=== PATIENT | female | born 1955 | race Caucasian/White ===

== ENCOUNTER 2016-09-29 13:32 | Outpatient (CLI) | payer BC ==
[~2016-09-29] VITALS: Ht 170.2 cm; Wt 91.2 kg
[~2016-09-29 13:32] MED LIST: AMLO5TAB2 PO; BPR100T PO; BPR150TCR PO; CEPH-38 PO; CEPH500C PO; CHOL500044 PO; FLUO60TA PO; HORMONE PILL PO; HYDR-3454 PO; HYDR1TAB PO; LAXATIVE PO; LEVO75TA6 PO; LOSA100T28 PO; LVT.025T PO; OMEP40CA36 PO; POLY17PO23 PO; PROG200C6 PO; SPIR50TA2 PO; [UNRECOGNIZED DRUG - OTHER]; [UNRECOGNIZED DRUG - OTHER] TOP
[2016-09-29] MEDS ORDERED: LIDOCAINE 1% INJ 20 ML (XYLOCAINE) VIAL ONE (13:46)
[2016-09-29] MEDS ORDERED: TRIAMCINOLONE ACET (KENALOG-40) 40 MG/ML 1 ML VIAL ONE (13:46)
[2016-09-29] MEDS ORDERED: BUPIVACAINE 0.25% 30 ML (SENSORCAINE) VIAL ONE (13:46)
[2016-09-29 13:56] VITALS: BP 121/73
[2016-09-29 14:41] VITALS: BP 138/75
--- NOTE | 2016-09-29 14:57 | Pain Medicine-Procedure ---
Procedure Pre-Op/Post-Op Diagnosis Diagnosis: sacrococcygeal disorder Indications for Operation Hip pain Attending Surgeon Nicolasa Procedure Date of Service: Sep 29, 2016 Procedure: Flouroscopic guided right sacroiliac joint injection PROCEDURE IN DETAIL: After obtaining informed consent from the patient, the patient's chart was reviewed. The patient was then brought to the procedure room and placed in the prone position. A time out was performed. The back was prepped with antiseptic solution and under fluoroscopic guidance the patient's sacroiliac joint on the right side was identified. Right sacroiliac joint was identified with fluoroscopic guidance and 2 mL's of 1% lidocaine was used to anesthestize the skin and then one 22-gauge 3.5 inch spinal needle was inserted and advance under flouroscopic guidance until it was in the posterior inferior 1 /3 of the sacroiliac joint on the right side. After negative aspiration, needle was injected with 80 mg of Kenalog along with 2 mL's of 0.25% marcaine. Needle was then flushed with 1% lidocaine and then removed. Band-Aids were applied to all the sites and the patient tolerated the procedure well and was taken to the recovery area in stable condition. Complications None RASHAAD GUILLORY MD Sep 29, 2016 2:57 pm
== END 2016-09-29 14:43 | disposition home or self-care (01) ==
LOC: CARD 13:32
PROVIDERS: ATTEND Pain Medicine Pain Medicine
DX: M53.3 Sacrococcygeal disorders, not elsewhere classified (principal); Z79.899 Other long term (current) drug therapy; M70.61 Trochanteric bursitis, right hip
CPT/HCPCS: 27096

== ENCOUNTER 2017-03-07 15:53 | Outpatient (RCR) | payer BC | END 2017-03-10 | disposition home or self-care (01) | PROVIDERS: ATTEND Nurse Practitioner | DX: M54.16 Radiculopathy, lumbar region (principal) ==

== ENCOUNTER 2017-03-19 08:48 | Outpatient (RCR) | payer BC | END 2017-03-19 09:55 | disposition home or self-care (01) | PROVIDERS: ATTEND Nurse Practitioner | DX: M54.16 Radiculopathy, lumbar region (principal) ==

== ENCOUNTER → 2017-04-24 | Outpatient (CLI) | payer BC ==
--- NOTE | 2017-04-25 19:50 | Diagnostic Imaging Report ---
Bilateral screening mammogram 2D views with tomosynthesis The current study was also evaluated with a Computer Aided Detection (CAD) system. INDICATION: Screening. No current complaints stated on the questionnaire. COMPARISON: 03/23/2016. FINDINGS: The breasts are composed of scattered fibroglandular densities. Intramammary lymph node is suggested in the outer aspect of the left breast, stable from prior exam. Allowing for technique and positional differences, no suspicious change is seen. IMPRESSION: No significant change. ACR BI-RADS Category 2: Benign findings. Result letter will be mailed to the patient. Note: At least 10% of breast cancer is not imaged by mammography. Dictated by: Dictated on workstation # [id number]
== END ==
LOC: RAD 08:53
PROVIDERS: ATTEND Family Medicine
DX: Z12.31 Encounter for screening mammogram for malignant neoplasm of breast (principal)
CPT/HCPCS: 77067

== ENCOUNTER → 2017-05-30 | Outpatient (CLI) | payer BC ==
[~2017-05-30] MED LIST changes: +DEXL60CA PO; +[UNRECOGNIZED DRUG - OTHER]
== END ==
LOC: PREOP 10:15
PROVIDERS: ATTEND Surgery
DX: Z01.818 Encounter for other preprocedural examination (principal); Z12.11 Encounter for screening for malignant neoplasm of colon; K21.9 Gastro-esophageal reflux disease without esophagitis; R10.13 Epigastric pain

== ENCOUNTER 2017-05-31 07:28 | Day surgery (SDC) | payer BC ==
[~2017-05-31] VITALS: Ht 170.2 cm; Wt 91.2 kg
[~2017-05-31 07:28] MED LIST changes: -DEXL60CA PO; -[UNRECOGNIZED DRUG - OTHER]
[2017-05-31] MEDS ORDERED: NS IV 500 ML 500 ML IV PRN (07:34)
[2017-05-31] MEDS ORDERED: HURRICAINE EXT TUBE (BENZOCAINE) XX PRN (07:45)
[2017-05-31 07:51] VITALS: BP 132/88
[2017-05-31] MEDS ORDERED: DEXL60CA PO (08:03)
[2017-05-31] MEDS ORDERED: [UNRECOGNIZED DRUG - OTHER] (08:05)
[2017-05-31] MEDS ORDERED: fentaNYL INJECTION 100 MCG/2 ML AMP ONE (08:58)
[2017-05-31] MEDS ORDERED: MIDAZOLAM 2 MG/2 ML (VERSED) VIAL ONE ×7 (08:59→09:21)
[2017-05-31] MEDS: MIDAZOLAM 2 MG/2 ML (VERSED) VIAL IVP PRN ×5 (09:05→09:28)
[2017-05-31] MEDS ORDERED: HURRICAINE EXT TUBE (BENZOCAINE) ONE (09:08)
[2017-05-31] MEDS: fentaNYL INJECTION 100 MCG/2 ML AMP IVP PRN ×2 (09:11→09:19)
--- NOTE | 2017-05-31 09:12 | History & Physicial ---
History of Present Illness History of Present Illness Reason for visit/HPI undergo an upper endoscopy to investigate epigastric pain along with concomitant screening colonoscopy. Denies any family history of colon cancer. Date of Admission 05/31/17 Date Seen by Provider: May 31, 2017 Time Seen by Provider: 09:09 I consulted on this patient on 05/31/17 09:08 Attending Physician Isela Velasquez MD Admitting Physician reji fletcher D.O Consult Allergies and Home Medications Allergies Coded Allergies: Sulfa (Sulfonamides) (Unverified Allergy, RASH, 05/03/10) Home Medications Bupropion Hcl 150 Mg Tablet, 150 MG PO DAILY, (Reported) Cholecalciferol (Vitamin D3) 5,000 Unit Tablet, 5,000 UNIT PO DAILY, (Reported) Dexlansoprazole 60 Mg Cap.bp, 60 MG PO DAILY, (Reported) Levothyroxine Sodium 75 Mcg Tablet, 75 MCG PO DAILY, (Reported) Losartan Potassium 100 Mg Tablet, 100 MG PO DAILY, (Reported) Progesterone,Micronized 200 Mg Capsule, 200 MG PO BID, (Reported) Spironolactone 50 Mg Tablet, 50 MG PO DAILY, (Reported) [Comp. Hormone Cream] , TOP DAILY, (Reported) [Otc B12] , DAILY, (Reported) Past [id number]-Uzxcnr Hx Patient Social History Marrital Status: Employed/Student: employed Alcohol Use: Denies Use Recreational Drug Use: No Smoking Status: Never a Smoker Recent Foreign Travel: No Contact w/other who traveled: No Recent Hopitalizations: No Recent Infectious Disease Expo: No Immunizations Up To Date Tetanus Booster (TDap): Unknown Date of Influenza Vaccine: Mar 11, 2015 Seasonal Allergies Seasonal Allergies: No Surgeries Yes Gallbladder Respiratory No Currently Using CPAP: No Currently Using BIPAP: No Cardiovascular Yes Hypertension Neurological No Reproductive System Hx Reproductive Disorders: No Sexually Transmitted Disease: No HIV/AIDS: No Female Reproductive Disorders: Denies Genitourinary No Gastrointestinal Ulcer Musculoskeletal No Endocrine History of Endocrine Disorders: No HEENT History of HEENT Disorders: No Loss of Vision: Denies Hearing Impairment: Denies Cancer No Psychosocial History of Psychiatric Problem: No Behavioral Health Disorders: Depression Constitutional: no symptoms reported EENTM: no symptoms reported Respiratory: no symptoms reported Cardiovascular: no symptoms reported Gastrointestinal: no symptoms reported, see HPI Genitourinary: no symptoms reported Musculoskeletal: no symptoms reported Skin: no symptoms reported Psychiatric/Neurological: No Symptoms Reported Physical Exam Vital Signs Vital Sign - Last 12Hours 05/31/17 07:51 Temp 98.3 Pulse 62 Resp 18 B/P (MAP) 132/88 (103) Pulse Ox 94 O2 Delivery Room Air Capillary Refill : General Appearance: No Apparent Distress HEENT: Normal ENT Inspection Neck: Normal Inspection Respiratory: Lungs Clear Cardiovascular: Regular Rate, Rhythm Gastrointestinal: Non Tender, Soft Rectal: Deferred Extremity: Normal Inspection Neurologic/Psychiatric: Alert, Oriented x3 Skin: Warm/Dry Assessment/Plan Assessment and Plan Lady with symptoms of GERD and in need of screening colonoscopy. Discussed in detail Problems: ISELA VELASQUEZ MD May 31, 2017 9:12 am
--- NOTE | 2017-05-31 09:13 | Conscious Sedation/ASA ---
Conscious Sedation Pre-Proced Time Reviewed: 09:12 ASA Class: 2 Airway Mallampati Classification: ([place] appropriate class) I. II. III, IV Lungs Heart ASA score ASA 1: a normal healthy patient ASA 2: a patient with a mild systemic disease (mid diabetes, controlled hypertension, obesity ASA 3: a patient with a severe systemic disease that limits activity (angina , COPD, prior Myocardial infarction) ASA 4: a patient with an incapacitating disease that is a constant threat to life (CHF, renal failure) ASA 5: a moribund patient not expected to survive 24 hrs. (ruptured aneurysm) ASA 6: a declared brain patient whose organs are being harvested. For emergent operations, add the letter E after the classification Grade 1 Sedation Plan: Discussed options with patient/fam Note The patient is an appropriate candidate to undergo the planned procedure, sedation, and anesthesia. The patient immediately re-assessed prior to indication. ISELA VELASQUEZ MD May 31, 2017 9:12 am
--- NOTE | 2017-05-31 09:42 | Endo Procedure Record ---
Endo Procedure Report Date of Procedure May 31, 2017 Surgeon (s) ISELA VELASQUEZ MD Post Procedure/Op Diagnosis EGD: Grade 2 esophagitis and distal gastritis Colonoscopy: Sigmoid diverticulosis Procedure Performed EGD with antral biopsy for H. pylori Colonoscopy to cecum Description of Procedure Anesthesia Type: Conscious Sedation Specimen(s) collected/removed antral mucosa for H. pylori Description of the Procedure Indication for the procedures: This lady came in for an endoscopic assessment of symptoms of reflux disease and for concomitant screening colonoscopy. She denied any family history of colon cancer or polyps. Informed consent was obtained after reviewing the procedures in detail. Description of the procedures: EGD/antral biopsy: She was placed in left lateral decubitus position and her vital signs were monitored. Conscious sedation was achieved using Versed and fentanyl. The flexible gastroscope was introduced down the esophagus, past the stomach, into the proximal duodenum. Findings: Esophagus: Grade 2 esophagitis Stomach: Moderate distal gastritis. There was no ulceration. Biopsy for H. pylori was obtained. Duodenum: Normal She tolerated the procedure well and was turned around in preparation for colonoscopy Impression: Symptoms of reflux disease. Grade 2 esophagitis. Distal gastritis. Helicobacter status pending. Colonoscopy: Digital rectal examination was unremarkable. The colonoscope was then introduced in the rectum and advanced with some difficulty around the sigmoid colon, all the way to the cecum scope was then withdrawn slowly and the mucosa examined in a systematic fashion findings: Sigmoid diverticulosis of moderate severity. No polyps were found She tolerated the procedures well and was taken back to the nursing area in a stable condition Impression: Screening colonoscopy. No polyps. No family history. Recommend repeating 10 years. Copies To: SANDRA CUENCA XAVIER M MD May 31, 2017 9:41 am
--- NOTE | 2017-05-31 09:43 | Discharge Inst-Simple/Standard ---
Discharge Inst-Standard Discharge Medications New, Converted or Re-Newed RX: Other Patient Instructions/Follow Up Plan of Care/Instructions/FU: Follow-up with Dr. CUENCA. Repeat screening colonoscopy in 10 years Activity as Tolerated: Yes Discharge Diet: No Restrictions ISELA VELASQUEZ MD May 31, 2017 9:43 am
[2017-05-31 10:05] VITALS: BP 111/73
[2017-05-31 10:35] VITALS: BP 106/63
[2017-05-31 10:45] VITALS: BP 106/63
== END 2017-05-31 10:45 | disposition home or self-care (01) ==
LOC: ENDO 07:28
PROVIDERS: ATTEND Surgery
DX: Z12.11 Encounter for screening for malignant neoplasm of colon (principal); K57.30 Diverticulosis of large intestine without perforation or abscess without bleeding; K20.9 Esophagitis, unspecified; K29.70 Gastritis, unspecified, without bleeding; I10 Essential (primary) hypertension; F32.9 Major depressive disorder, single episode, unspecified; Z79.899 Other long term (current) drug therapy

== ENCOUNTER → 2018-03-29 | Outpatient (CLI) | payer BC ==
[~2018-03-29] MED LIST changes: -AMLO5TAB2 PO; +AMLO5TAB7 PO; +DEXL60CA PO; -LOSA100T28 PO; +LOSA100T8 PO; -SPIR50TA2 PO; +SPIR50TA4 PO; +[UNRECOGNIZED DRUG - OTHER]
--- NOTE | 2018-03-29 13:04 | Diagnostic Imaging Report ---
INDICATION: Routine screening. Comparison is made with prior mammogram from 04/24/2017 and 04/05/2015. 2-D and 3-D bilateral screening mammography was performed with CAD. The current study was also evaluated with a Computer Aided Detection (CAD) system. FINDINGS: Scattered fibroglandular densities are identified bilaterally. Intraparenchymal lymph nodes in the outer left breast are again noted and appear stable. No spiculated mass or malignant-appearing microcalcifications are seen. The axillae are unremarkable. IMPRESSION: No mammographic features suspicious for malignancy are identified. ACR BI-RADS Category 2: Benign findings. Result letter will be mailed to the patient. Note: At least 10% of breast cancer is not imaged by mammography. Dictated by: Dictated on workstation # [id number]
== END ==
LOC: RAD 08:06
PROVIDERS: ATTEND Nurse Practitioner Family
DX: Z12.31 Encounter for screening mammogram for malignant neoplasm of breast (principal)
CPT/HCPCS: 77067

== ENCOUNTER → 2018-07-11 | Outpatient (CLI) | payer BC ==
[~2018-07-11] MED LIST changes: -AMLO5TAB7 PO; +AMLO5TAB9 PO; +LOSA100T57 PO; -LOSA100T8 PO
--- NOTE | 2018-07-11 12:42 | Diagnostic Imaging Report ---
INDICATION: Postmenopausal screening for osteoporosis. COMPARISON: None. FINDINGS: AP Spine L1-L4: [BMD (g/cm2): 0.732] [T-Score: -3.9] [Z-Score: -3.7] [BMD Previous: 0.987] [BMD % Change: -25.8] LT Hip Neck: [BMD (g/cm2): 0.713] [T-Score: -2.3] [Z-Score: -1.8] LT Hip Total: [BMD (g/cm2):0.658] [T-Score:-2.8] [Z-Score: -2.6] [BMD Previous: 0.871] [BMD % Change: NA] RT Hip Neck: [BMD (g/cm2):0.671] [T-Score:-2.6] [Z-Score:-2.1] RT Hip Total: [BMD (g/cm2):0.663] [T-score:-2.7] [Z-Score:-2.5] [BMD Previous:0.878] [BMD % Change:NA] *Indicates significant change from prior examination based on 95% confidence level. World Health Organization criteria for BMD interpretation classify patients as Normal (T-score at or above -1.0), Osteopenic (T-score between -1.0 and -2.5) or Osteoporotic (T-score at or below -2.5). LIMITATIONS AND MODIFICATION: None. FRACTURE RISK (FRAX SCORE): The ten year probability of (%): Major Osteoporotic Fracture: [12] Hip Fracture: [2.4] IMPRESSION: 1. Osteoporosis. 2. Baseline examination. 3. See below National Osteoporosis Foundation guidelines on when to potentially initiate pharmacologic therapy. Based on the National Osteoporosis Foundation Guidelines, pharmacologic treatment should be initiated in any of the following, unless clinical conditions suggest otherwise: * Any patient with prior fragility fracture of the hip or vertebrae. A spine fracture indicates 5X risk for subsequent spine fracture and 2X risk for subsequent hip fracture. * Osteoporosis (T-score <-2.5). * Postmenopausal women and men age 50 and older with low bone mass/osteopenia (T-score between -1.0 and -2.5) by DXA and 10-year major osteoporotic fracture greater than 20% or a 10-year probability of hip fracture greater than 3%. These fracture risks are supplied above in the FRAX score, if applicable. * Clinician judgement and/or patient preferences may indicate treatment for people with 10-year fracture probabilities above or below these levels. Dictated by: Dictated on workstation # [id number]
== END ==
LOC: RAD 08:57
PROVIDERS: ATTEND Family Medicine
DX: Z13.820 Encounter for screening for osteoporosis (principal); M81.0 Age-related osteoporosis without current pathological fracture; M85.88 Other specified disorders of bone density and structure, other site; Z78.0 Asymptomatic menopausal state
CPT/HCPCS: 77080

== ENCOUNTER → 2019-02-17 | Outpatient (CLI) | payer BC ==
[~2019-02-17] MED LIST changes: -HYDR-3454 PO; +HYDR-3455 PO; +PROG200C10 PO; -PROG200C6 PO
--- NOTE | 2019-02-17 17:06 | Diagnostic Imaging Report ---
INDICATION: Right rib pain for approximately one week after gave her bear hug. Most of the pain is at approximately the right T7 level. FINDINGS: Three views of the right ribs demonstrate the right lung be clear with no pneumothorax or pleural effusion. No fractures are present. IMPRESSION: Negative right ribs. Dictated by: Dictated on workstation # [id number]
== END ==
LOC: RAD 16:48
PROVIDERS: ATTEND Nurse Practitioner Family
DX: R07.81 Pleurodynia (principal)
CPT/HCPCS: 71100

== ENCOUNTER → 2019-04-07 | Outpatient (CLI) | payer BC ==
--- NOTE | 2019-04-07 12:24 | Diagnostic Imaging Report ---
INDICATION: Routine screening. Comparison is made with prior mammogram 03/29/2018 and 04/24/2017. 2-D and 3-D bilateral screening mammography was performed with CAD. Scattered fibroglandular densities are identified bilaterally. There are benign calcifications present. Benign nodules in the outer left breast are again noted and appears stable. No new mass or malignant appearing microcalcifications are seen. Axillae are unremarkable. IMPRESSION: BI-RADS Category 2 No mammographic features suspicious for malignancy are identified. ACR BI-RADS Category 2: Benign findings. Result letter will be mailed to the patient. Note: At least 10% of breast cancer is not imaged by mammography. Dictated by: Dictated on workstation # [id number]
== END ==
LOC: RAD 09:15
PROVIDERS: ATTEND Family Medicine
DX: Z12.31 Encounter for screening mammogram for malignant neoplasm of breast (principal)
CPT/HCPCS: 77067

== ENCOUNTER → 2020-04-08 | Outpatient (CLI) | payer BC ==
[~2020-04-08] MED LIST changes: +AMLO-250 PO; -AMLO5TAB9 PO
--- NOTE | 2020-04-08 17:38 | Diagnostic Imaging Report ---
INDICATION: Screening. At this time there are no current complaints. EXAMINATION: Bilateral digital screening mammogram with CAD. 3D tomographic images were obtained and reviewed. The current study was also evaluated with a Computer Aided Detection (CAD) system. COMPARISON: This study was compared to the prior exam of 04/07/2019, 03/29/2018 and 04/24/2017. FINDINGS: There are scattered fibroglandular densities in both breasts which could obscure a lesion. Overall, there does not appear to have been any significant change when compared to the prior exam. No primary or secondary sign of malignancy is noted. IMPRESSION: There is no radiographic evidence for malignancy. ACR BI-RADS Category 1: Negative. Result letter will be mailed to the patient. Note: At least 10% of breast cancer is not imaged by mammography. Dictated by: Dictated on workstation # [id number]
== END ==
LOC: RAD 10:15
PROVIDERS: ATTEND Family Medicine
DX: Z12.31 Encounter for screening mammogram for malignant neoplasm of breast (principal)
CPT/HCPCS: 77063; 77067

== ENCOUNTER → 2020-09-29 | Outpatient (CLI) | payer BC | LOC: CARD 08:30 | PROVIDERS: ATTEND Family Medicine | DX: I08.0 Rheumatic disorders of both mitral and aortic valves (principal) | CPT/HCPCS: 93306 ==

== ENCOUNTER → 2021-03-08 | Outpatient (CLI) | payer BC ==
--- NOTE | 2021-03-08 12:56 | Diagnostic Imaging Report ---
INDICATION: Routine screening. Comparison is made with prior mammogram from 04/08/2020 and 04/07/2019. 2-D and 3-D bilateral screening mammography was performed with CAD. Scattered fibroglandular densities are identified bilaterally. Intraparenchymal lymph node in the outer left breast is stable. No new mass or malignant-appearing microcalcifications are seen. Axillae are unremarkable. IMPRESSION: BI-RADS Category 2 No mammographic features suspicious for malignancy are identified. ACR BI-RADS Category 2: Benign findings. Result letter will be mailed to the patient. Note: At least 10% of breast cancer is not imaged by mammography. Dictated by: Dictated on workstation # [id number]
== END ==
LOC: RAD 09:00
PROVIDERS: ATTEND Family Medicine
DX: Z12.31 Encounter for screening mammogram for malignant neoplasm of breast (principal)
CPT/HCPCS: 77063; 77067